=== PATIENT | female | born 1975 | race Caucasian/White ===

== ENCOUNTER 2017-02-06 13:11 | Emergency (ER) | payer OTHER ==
[2017-02-06 13:40] VITALS: BP 103/69
--- NOTE | 2017-02-06 14:51 | UC ---
Abdominal Pain Female HPI - HPI Summary HPI Summary: pt c/o abdominal discomfort that began 1 week ago. Pt has history of back injury and jail narcotic use. Was changed to tizanadine recently and states that constipation began with this. Pt denies nausea and vomiting, is passing flatus, is passing small hard stools, reports decreased appetite. Has taken one dose of OTC ex lax and one dose of oral mineral oil with no changes in BM pattern. Pt genny history of diverticulitis, IBS, crohns or any GI disease or dysfunction - History of Current Complaint Chief Complaint: UCAbdominalPain Stated Complaint: ABDOMINAL PAIN Time Seen by Provider: 02/06/17 14:42 Hx Obtained From: Patient Hx Last Menstrual Period: 01/30/17 ?: No Onset/Duration: Gradual Onset, Lasting Days - 7 days. Timing: Constant Severity Initially: Mild Severity Currently: Mild Location: Diffuse - generalized abdomen Radiates: No Character: Colicy, Dull Aggravating Factor(s): Food Alleviating Factor(s): Nothing Associated Signs and Symptoms: Positive: Constipation, Decreased Appetite Allergies/Adverse Reactions: Allergies Allergy/AdvReac Type Severity Reaction Status Date / Time No Known Allergies Allergy Verified 02/06/17 13:32 Home Medications: Home Medications Meloxicam [Mobic] 15 mg PO DAILY 02/06/17 [History Confirmed 02/06/17] Tapentadol HCl [Nucynta] 50 mg PO DAILY 02/06/17 [History Confirmed 02/06/17] Tizanidine HCl 2 mg PO TID 02/06/17 [History Confirmed 02/06/17] oxyCODONE TAB* [Roxycodone TAB 5 mg*] 5 mg PO Q6H PRN 02/06/17 [History Confirmed 02/06/17] PMH/Surg Hx/FS Hx/Imm Hx - Additional Past Medical History Additional PMH: pt presents with c/o of generalized abdominal pain, constipation, bloating and decreased appetite. Pt reports that she has chronic back pain and began taking oxycodone in 2007 due to pack injury. Pt had oxydcodone changed to tizanidine ~ 2 weeks. Pt reports has had change in bowel pattern since beginning to use tizanidine. Pt states that she has not had a "real BM" in one week. She reports passing flatus and does have urge to have BM and passes small hard stools daily. Previously Healthy: Yes - Surgical History Surgical History: Yes Surgery Procedure, Year, and Place: appy as a child - Family History Known Family History: Positive: Other - positive for FMH for URI - Social History Alcohol Use: None Substance Use Type: Prescribed Smoking Status (MU): Heavy Every Day Tobacco Smoker Type: Cigarettes Amount Used/How Often: 1/2 PPD x30 yrs Review of Systems Constitutional: Negative Skin: Negative Eyes: Negative ENT: Negative Respiratory: Negative Cardiovascular: Negative Gastrointestinal: Abdominal Pain, Other - constipated Genitourinary: Negative Motor: Negative Neurovascular: Negative Musculoskeletal: Negative Neurological: Negative Psychological: Negative All Other Systems Reviewed And Are Negative: Yes Physical Exam Triage Information Reviewed: Yes Appearance: Well-Appearing Vital Signs: Initial Vital Signs Temp 100.3 F 02/06/17 13:32 Pulse 62 02/06/17 13:32 Resp 18 02/06/17 13:32 BP 103/69 02/06/17 13:32 Pulse Ox 97 02/06/17 13:32 Vital Signs Reviewed: Yes Eye Exam: Normal ENT Exam: Normal Neck exam: Normal Respiratory Exam: Normal Cardiovascular Exam: Normal Abdominal Exam: Normal Abdomen Description: Positive: Nontender, No Organomegaly, Soft Bowel Sounds: Positive: Present Musculoskeletal Exam: Normal Neurological Exam: Normal Psychological Exam: Normal Skin Exam: Normal Abd Pain Female Course/Dx - Course Course Of Treatment: I discussed constipation management and the results of the UA and the need to f/u with her PCP or return to clinic. Pt verbalized understanding and agreed to plan of care. - Differential Dx/Diagnosis Differential Diagnosis: Bowel Obstruction, Constipation, Urinary Tract Infection Provider Diagnoses: constipation. hematuria Discharge - Discharge Plan Condition: Stable Disposition: HOME Prescriptions: Docusate CAP* [Colace Cap*] 100 mg PO BID #20 cap Polyethylene Glycol 3350* [Miralax*] 17 gm PO DAILY #5 packet Patient Education Materials: Constipation (ED) Referrals: Sourav Cotter MD [Primary Care Provider] - 1 Day (Please follwo up with your pCP or return to clinic as needed. If your symptoms do not improve, please seek medical attention as soon as possibl eat the closest healthcare facility. )
--- NOTE | 2017-02-06 15:15 | RAD ---
INDICATION: Abdominal pain x1 week COMPARISON: None TECHNIQUE: Supine and upright views of the abdomen were obtained. FINDINGS: The small bowel and colon appear nondistended. No free intraperitoneal air is seen. No grossly abnormal or pathologic appearing calcifications are noted. Visualized bones are within normal limits for the patient's age. IMPRESSION: Normal abdominal radiograph.
== END 2017-02-06 15:19 | disposition home or self-care (01) ==
LOC: UCCORT 13:11
DX: K59.00 Constipation, unspecified (principal); R31.9 Hematuria, unspecified; F17.210 Nicotine dependence, cigarettes, uncomplicated
CPT/HCPCS: 74020; 81003; 99212; G0463

== ENCOUNTER 2017-02-07 15:03 | Emergency (ER) | payer OTHER ==
[2017-02-07 15:13] VITALS: BP 124/67
[2017-02-07] MEDS ORDERED: NS 0.9% 1000 ML* 2,000 ML IV ONE (15:55)
[2017-02-07] MEDS ORDERED: Ondansetron INJ* 2 MG/ML VIAL IV ONE (15:55)
== END 2017-02-07 16:43 | disposition left against medical advice (07) ==
LOC: ED 15:03
DX: R10.9 Unspecified abdominal pain (principal); Z53.21 Procedure and treatment not carried out due to patient leaving prior to being seen by health care provider

== ENCOUNTER 2017-02-09 08:44 | Emergency (ER) | payer OTHER ==
[2017-02-09 09:03] VITALS: BP 122/74
--- NOTE | 2017-02-09 09:32 | UC ---
Abdominal Pain Female HPI - HPI Summary HPI Summary: PT HAS STRUGGLED WITH CONTIPATION FOR THE LAST 10 DAYS. SEEN AT [facility] 3 DAYS AGO AND GIVEN COLACE AND MIRALAX. PT ONLY TOOK FOR 1 DAY. DIDN'T THINK IT WAS WORKING AFTER TAKING FOR 1 DAY SO SHE STOPPED. USED AN ENEMA 2 DAYS AGO WITH GOOD RESULTS BUT NO BM SINCE. HAS ABDOMINAL BLOATING AND PAIN AND THREW UP CLEAR LIQUID YESTERDAY. NO FEVER. IS PASSING GAS. - History of Current Complaint Chief Complaint: UCAbdominalPain Stated Complaint: ABD PAIN Time Seen by Provider: 02/09/17 09:17 Hx Obtained From: Patient Hx Last Menstrual Period: 3 days ago ended Onset/Duration: Gradual Onset, Lasting Days, Still Present Timing: Constant Severity Initially: Moderate Severity Currently: Moderate Pain Intensity: 8 Pain Scale Used: 0-10 Numeric Location: Diffuse Radiates: No Character: Sharp Aggravating Factor(s): Nothing Alleviating Factor(s): Nothing Associated Signs and Symptoms: Positive: Constipation, Nausea, Vomiting Allergies/Adverse Reactions: Allergies Allergy/AdvReac Type Severity Reaction Status Date / Time No Known Allergies Allergy Verified 02/06/17 13:32 PMH/Surg Hx/FS Hx/Imm Hx - Additional Past Medical History Additional PMH: CHRONIC BACK PAIN - Surgical History Surgical History: Yes Surgery Procedure, Year, and Place: appy as a child - Family History Known Family History: Positive: Other - positive for FMH for URI - Social History Alcohol Use: None Substance Use Type: Prescribed Smoking Status (MU): Heavy Every Day Tobacco Smoker Type: Cigarettes Amount Used/How Often: 1/2 PPD x30 yrs Review of Systems Constitutional: Negative Respiratory: Negative Cardiovascular: Negative Gastrointestinal: Abdominal Pain, Vomiting, Other - NAUSEA All Other Systems Reviewed And Are Negative: Yes Physical Exam Triage Information Reviewed: Yes Appearance: Well-Appearing, No Pain Distress, Well-Nourished Vital Signs: Initial Vital Signs Temp 99.2 F 02/09/17 08:57 Pulse 62 02/09/17 08:57 Resp 18 02/09/17 08:57 BP 122/74 02/09/17 08:57 Pulse Ox 99 02/09/17 08:57 Vital Signs Reviewed: Yes Eyes: Positive: Conjunctiva Clear ENT: Positive: Hearing grossly normal Neck: Positive: Supple Respiratory Exam: Normal Cardiovascular Exam: Normal Abdomen Description: Positive: Soft, Distended - MILDLY, Other: - DIFFUSELY TENDER. Negative: Guarding Bowel Sounds: Positive: Present Musculoskeletal: Positive: No Edema Neurological: Positive: Alert Psychological: Positive: Age Appropriate Behavior Skin: Negative: rashes Abd Pain Female Course/Dx - Differential Dx/Diagnosis Provider Diagnoses: ACUTE CONSTIPATION Discharge - Discharge Plan Condition: Stable Disposition: HOME Patient Education Materials: Constipation (ED) Referrals: Sourav Cotter MD [Primary Care Provider] - If Needed Additional Instructions: TAKE THE COLACE PRESCRIBED. TAKE MIRALAX 2-3 TIMES DAILY FOR THE NEXT SEVERAL DAYS UNTIL YOU HAVE A BM THEN REDUCE TO ONCE DAILY FOR MAINTENANCE. FOLLOW-UP WITH YOUR PCP. BE SURE TO STAY WELL HYDRATED. DRINK AT LEAST 2 L OF WATER DAILY. EAT A WELL BALANCED DIET. GO TO THE ER WITHOUT FAIL IF YOU STOP PASSING GAS OR THE PAIN WORSENS.
== END 2017-02-09 10:16 | disposition home or self-care (01) ==
LOC: UCEAST 08:44
DX: K59.00 Constipation, unspecified (principal); R11.2 Nausea with vomiting, unspecified; G89.29 Other chronic pain; M54.9 Dorsalgia, unspecified; F17.210 Nicotine dependence, cigarettes, uncomplicated
CPT/HCPCS: 99211; G0463

== ENCOUNTER 2017-02-11 20:53 | Emergency (ER) | payer OTHER ==
[2017-02-11 21:07] VITALS: BP 120/77
[2017-02-11] MEDS ORDERED: Ondansetron ODT TAB* 4 MG PO ONE ×2 (22:15→22:24)
--- NOTE | 2017-02-13 16:40 | UC ---
Butch Murillo Michael, scribed for Rivka Billingsley MD on 02/11/17 at 2140 . Abdominal Pain Female HPI - HPI Summary HPI Summary: 41 y/o female comes to the ED presenting with constant and sharp right sided abd pain, progressively worse x 13 days, Much worse today. Has been seen x 2 visitis in [facility] ([place] and [place]). Last BM 13 days ago. Denies melena / brbpr. No urinary sx. Has tried several laxatives, enemas, but w/o relief. No rash. No sob / cp / palpitations. No p/d/w. She also c/o increased stress since the onset of the constipation and n/v. The pt's previous urine analysis showed protein, blood, ketones, and bilirubin in the urine. She visited [facility] on 02/09/17 for the same symptoms. She was dx with acute constipation. - History of Current Complaint Chief Complaint: UCAbdominalPain Stated Complaint: ABDOMINAL PAIN Hx Obtained From: Patient, Medical Records Hx Last Menstrual Period: 1 WEEK AGO Onset/Duration: Sudden Onset, Lasting Hours, Still Present Timing: Constant Severity Initially: Moderate Severity Currently: Moderate Pain Intensity: 10 Pain Scale Used: 0-10 Numeric Location: Discrete At: RUQ, Discrete At: RLQ Radiates: No Character: Sharp Aggravating Factor(s): Nothing Alleviating Factor(s): Nothing Associated Signs and Symptoms: Positive: Constipation, Nausea, Vomiting, Other: - stress. Allergies/Adverse Reactions: Allergies Allergy/AdvReac Type Severity Reaction Status Date / Time No Known Allergies Allergy Verified 02/11/17 21:07 PMH/Surg Hx/FS Hx/Imm Hx - Additional Past Medical History Additional PMH: chronic back pain Previously Healthy: No - see hpi - Surgical History Surgical History: Yes Surgery Procedure, Year, and Place: appy as a child - Family History Known Family History: Positive: Other - positive for FMH for URI - Social History Occupation: Unemployed Lives: With Family Alcohol Use: None Substance Use Type: None Smoking Status (MU): Current Every Day Smoker Type: Cigarettes Amount Used/How Often: 1/2 PPD Review of Systems Constitutional: Fatigue Skin: Negative Eyes: Negative, Diplopia Respiratory: Negative Cardiovascular: Negative Gastrointestinal: Abdominal Pain, Vomiting, Other - nausea. constipation Genitourinary: Negative, Other - see hpi Motor: Negative Neurovascular: Negative Musculoskeletal: Negative Neurological: Negative Psychological: Anxious - understandably anxious All Other Systems Reviewed And Are Negative: Yes Physical Exam Triage Information Reviewed: Yes Appearance: Well-Nourished, Other: - pale. non-diaphoretic. uncomfortable. laying on stretcher and holding her tummy. Vital Signs: Initial Vital Signs Temp 98.7 F 02/11/17 21:04 Pulse 66 02/11/17 21:04 Resp 16 02/11/17 21:04 BP 120/77 02/11/17 21:04 Pulse Ox 98 02/11/17 21:04 Vital Signs Reviewed: Yes Eye Exam: Normal ENT Exam: Normal ENT: Positive: Other: - oral mucosa dry. Neck exam: Normal - no adenopathy noted Respiratory Exam: Normal Respiratory: Positive: Chest non-tender, Lungs clear, Normal breath sounds, No respiratory distress, Other: - no dyspnea. no tachypnea. nml respiratory distress. Cardiovascular Exam: Normal Cardiovascular: Positive: RRR, No Murmur, Pulses Normal, Brisk Capillary Refill Abdomen Description: Positive: Soft, Other: - Mild distended no fluid wave. Non tympanic. Tender RUQ greater than LUQ. Tender RLQ. No cvat. Rectal digital exam w/o fissures or sores. No stool appreciated in vault.. Negative: CVA Tenderness (R), CVA Tenderness (L) Bowel Sounds: Positive: Hyperactive Musculoskeletal Exam: Normal Musculoskeletal: Positive: Strength Intact Neurological Exam: Normal - nonfocal. grossly intact. Psychological Exam: Normal - conversing easily Psychological: Positive: Age Appropriate Behavior Skin Exam: Normal - no rashes visualized or reported Abd Pain Female Course/Dx - Course Course Of Treatment: Rectal Exam: no sores or fissures. no stool was appreciated. Patient will be transferred to the [facility] ED-discussed with Dr. Billingsley at 1023. Patient offered and encouraged EMS. Patient and sign other politely but firmly decline EMS. They left prior to AMA for EMS was signed ( although it was reviewed with them). Advised not to eat or drink on the way to the ED. - Differential Dx/Diagnosis Provider Diagnoses: Acute abdominal pain. Obstipation Discharge - Discharge Plan Condition: Guarded Disposition: AGAINST MEDICAL ADVICE Patient Education Materials: Acute Abdominal Pain (ED) Referrals: Sourav Cotter MD [Primary Care Provider] - Additional Instructions: Please go to the Emergency Department as soon as possible. The documentation as recorded by the kashmiribButch robison Michael accurately reflects the service I personally performed and the decisions made by me, Rivka Billingsley MD.
== END 2017-02-11 22:40 | disposition left against medical advice (07) ==
LOC: UCEAST 20:53
DX: K59.00 Constipation, unspecified (principal); F17.210 Nicotine dependence, cigarettes, uncomplicated
CPT/HCPCS: 99212; G0463

== ENCOUNTER 2017-02-11 22:55 | Emergency (ER) | payer OTHER ==
[2017-02-11] MEDS ORDERED: Ondansetron INJ* 2 MG/ML VIAL IV ONE (23:55)
[2017-02-11] MEDS ORDERED: Morphine INJ* 4 MG/ML 1 ML SYRINGE IV ONE (23:55)
[2017-02-12] MEDS ORDERED: NS 0.9% 1000 ML* 1,000 ML IV ONE (00:02)
[2017-02-12 00:07] LABS: Comments Flag Yes; Hematocrit 46 % (35-47); Hemoglobin 15.1 g/dl (12.0-16.0); Mean Corpuscular HGB Conc 33 g/dl (31-36); Mean Corpuscular Hemoglobin 29 pg (27-31); Mean Corpuscular Volume 89 fL (80-97); Mean Platelet Volume 12 um3 (7.4-10.4); Red Cell Distribution Width 14 % (10.5-15); White Blood Count 18.5 10^3/ul (3.5-10.8)
[2017-02-12 00:08] LABS: Add Diff/Slide Review? Slide Review Added
[2017-02-12 00:21] LABS: Albumin 4.1 g/dL (3.2-5.2); BUN/Creatinine Ratio 18.4 (8-20); C Reactive Protein 17.6 mg/L (< 5.00); Calcium 9.2 mg/dL (8.6-10.3); EGFR African American 106.8 (>60); EGFR Non-African American 83.1 (>60); Globulin 3.3 g/dL (2-4); Potassium 3.7 mmol/L (3.5-5.0); Total Bilirubin 0.5 mg/dL (0.2-1.0); Total Protein 7.4 g/dL (6.4-8.9)
[2017-02-12] MEDS ORDERED: Iohexol 300* (CONTRAST) 10 ML SDV IV ONE (00:51)
[2017-02-12] MEDS ORDERED: Morphine INJ* 2 MG/ML 1 ML SYRINGE ONE (02:22)
[2017-02-12] MEDS ORDERED: Morphine INJ* 4 MG/ML 1 ML SYRINGE IV ONE (02:25)
[2017-02-12 02:42] LABS: Urine Bilirubin Negative (Negative); Urine Glucose Negative (Negative); Urine Nitrite Negative (Negative)
[2017-02-12 04:05] VITALS: BP 103/65
--- NOTE | 2017-02-12 08:03 | RAD ---
INDICATION: Vomiting, no bowel movement, abdominal pain. COMPARISON: Comparison is made with a prior abdominal series from February 06, 2017. TECHNIQUE: A CT scan of the abdomen and pelvis was performed with intravenous and oral contrast following intravenous injection of 81 ml of Omnipaque 300 nonionic contrast. Contiguous axial sections were obtained from the lung bases through the symphysis pubis. Images were reconstructed in the coronal and sagittal planes. FINDINGS: There is mild dependent bilateral lower lobe subsegmental atelectasis. No pleural effusion is present. The liver and spleen are normal in size without significant focal abnormality. No calcified gallstones are seen. There is mild pancreatic ductal distention. No focal pancreatic abnormality is seen. The kidneys and adrenal glands are normal in size. No hydronephrosis is seen. No significant focal renal abnormality is seen. The aorta is normal in caliber with mild calcific plaque present. No significant enlarged retroperitoneal lymph nodes are seen. The stomach, small and large bowel appear nondistended. There is thickening of the wall of the antrum of the stomach and stranding in the adjacent mesenteric fat nonspecific although suggestive of an inflammatory process. The appendix is not visualized although no inflammatory changes are seen in the right lower quadrant. There is mild descending and sigmoid diverticulosis without evidence for diverticulitis. The uterus is anteverted and normal in size. No free intraperitoneal air or fluid is seen. There are prominent vessels adjacent to the uterus in the left adnexa suggesting the possibility of pelvic congestion syndrome. No significant focal osseous abnormality is seen. The results of this exam were called to the referring clinician. IMPRESSION: THERE IS THICKENING OF THE WALL OF THE STOMACH WITH STRANDING IN THE MESENTERIC FAT SUGGESTIVE OF AN INFLAMMATORY PROCESS SUCH GASTRITIS ALTHOUGH NONSPECIFIC. RECOMMEND ENDOSCOPY FOR FURTHER EVALUATION.
--- NOTE | 2017-02-16 22:47 | ED ---
Sourav Murillo Erika, scribed for Iker Billingsley MD on 02/12/17 at 0109 . Abdominal Pain/Female - HPI Summary HPI Summary: Patient is a 41-year-old female presenting to the ED with a CC of abdominal pain. Patient reports that pain has been going on for 13 days, and pt has not had a BM in 13 days. She reports pain is periumbilical and she currently rates pain a 9/10. Patient reports she has not improved with colace or miralax. She notes a fever of 101 a few days ago. Yesterday, patient started vomiting, and cannot tolerate PO intake. Patient denies urinary symptoms. She notes chronic back pain, for which she has been taking 5 mg oxycodone every 4-6 hours for 7 years. PSHx appendectomy. LNMP last week. - History of Current Complaint Chief Complaint: EDAbdPain Stated Complaint: ABD PAIN Time Seen by Provider: 02/11/17 23:45 Hx Obtained From: Patient Hx Last Menstrual Period: 1 WEEK AGO Onset/Duration: Gradual Onset, Lasting Weeks - 13 days, Still Present Timing: Constant Severity Initially: Mild Severity Currently: Moderate Pain Intensity: 9 Pain Scale Used: 0-10 Numeric Location: Umbilical Aggravating Factor(s): Food Alleviating Factor(s): Nothing Associated Signs and Symptoms: Positive: Fever, Constipation, Nausea, Vomiting. Negative: Urinary Symptoms Allergies/Adverse Reactions: Allergies Allergy/AdvReac Type Severity Reaction Status Date / Time No Known Allergies Allergy Verified 02/11/17 21:07 PMH/Surg Hx/FS Hx/Imm Hx Musculoskeletal History: Reports: Hx Back Problems - Surgical History Surgery Procedure, Year, and Place: appy as a child Infectious Disease History: No Infectious Disease History: Denies: Traveled Outside the [place] in Last 30 Days - Family History Known Family History: Positive: Diabetes - Social History Alcohol Use: None Hx Substance Use: No Substance Use Type: Reports: None Hx Tobacco Use: Yes Smoking Status (MU): Current Every Day Smoker Type: Cigarettes Amount Used/How Often: 1/2 PPD Review of Systems Positive: Fever. Negative: Chills Negative: Erythema Negative: Sore Throat Negative: Chest Pain Negative: Shortness Of Breath, Cough Gastrointestinal: Other - constipation Positive: Abdominal Pain, Vomiting, Nausea Negative: dysuria, hematuria Positive: Myalgia - chronic back pain. Negative: Edema Neurological: Other - No dizziness All Other Systems Reviewed And Are Negative: Yes Physical Exam - Summary Physical Exam Summary: Constitutional: Well-developed, Well-nourished, Alert. (-) Distressed Skin: Warm, Dry HENT: Normocephalic; Atraumatic Eyes: Conjunctiva normal Neck: Musculoskeletal ROM normal neck. (-) JVD, (-) Stridor, (-) Tracheal deviation Cardio: Rhythm regular, rate normal, Heart sounds normal; Intact distal pulses; The pedal pulses are 2+ and symmetric. Radial pulses are 2+ and symmetric. (-) Murmur Pulmonary/Chest wall: Effort normal. (-) Respiratory distress, (-) Wheezes, (-) Rales Abd: Soft, RLQ and periumbilical tenderness to palpation, (-) Distension, (-) Guarding, (-) Rebound Musculoskeletal: (-) Edema Lymph: (-) Cervical adenopathy Neuro: Alert, Oriented x3 Psych: Mood and affect Normal Triage Information Reviewed: Yes Vital Signs On Initial Exam: Initial Vitals Temp Pulse Resp BP Pulse Ox 98.4 F 73 16 114/72 98 02/11/17 23:08 02/11/17 23:08 02/11/17 23:08 02/11/17 23:08 02/11/17 23:08 Vital Signs Reviewed: Yes Diagnostics - Vital Signs Vital Signs Temp Pulse Resp BP Pulse Ox 02/11/17 23:08 98.4 F 73 16 114/72 98 - Laboratory Result Diagrams: 02/11/17 23:55 02/11/17 23:55 Lab Statement: Any lab studies that have been ordered have been reviewed, and results considered in the medical decision making process. - CT CT A/P W/ CT Interpretation Completed By: Radiologist - IMAGING OCCUPATIONAL THERAPY ASSIST - Suspected diarrheal illness. Possible pelvic congestion syndrome. Re-Evaluation - Re-Evaluation First Eval Re-Evaluation Time: 03:12 Comment: Discussed CT results with patient. Pt was able to tolerate a whole cup of contrast Second Eval Re-Evaluation Time: 03:57 Comment: PO challenge completed Abdominal Pain Fem Course/Dx - Course Course Of Treatment: Patient has no appendix. Urine was clean. She has been vomiting which could represent a viral illness, and her brother apparently has a viral illness. - Diagnoses Provider Diagnoses: Vomiting, Viral illness Discharge - Discharge Plan Condition: Stable Disposition: HOME Patient Education Materials: Acute Nausea and Vomiting (ED), Viral Syndrome (ED ) Referrals: Sourav Cotter MD [Primary Care Provider] - 2 Days The documentation as recorded by the Sourav campos Erika accurately reflects the service I personally performed and the decisions made by , Iker Billingsley MD.
== END 2017-02-12 04:08 | disposition home or self-care (01) ==
LOC: ED 22:55
DX: B34.9 Viral infection, unspecified (principal); R10.9 Unspecified abdominal pain; R50.9 Fever, unspecified; R11.2 Nausea with vomiting, unspecified; M54.9 Dorsalgia, unspecified
CPT/HCPCS: 36415; 74177; 80053; 81003; 83605; 83690; 85025; 86140; 96374; 96375; 99284; J2270; J2405; Q9967

== ENCOUNTER 2017-02-18 11:00 | Observation (INO) | payer OTHER ==
[2017-02-18] MEDS ORDERED: Ketorolac INJ* 30 MG/ML 1 ML VIAL IV PUSH ONE (11:27)
[2017-02-18] MEDS ORDERED: Pantoprazole IV* 40 MG IV ONE (11:27)
[2017-02-18] MEDS ORDERED: NS 0.9% 1000 ML* 1,000 ML IV ONE (11:27)
[2017-02-18 12:27] LABS: Hematocrit 44 % (35-47); Hemoglobin 14.4 g/dl (12.0-16.0); Mean Corpuscular HGB Conc 33 g/dl (31-36); Mean Corpuscular Hemoglobin 29 pg (27-31); Mean Corpuscular Volume 89 fL (80-97); Mean Platelet Volume 11 um3 (7.4-10.4); Red Blood Count 4.98 10^6/ul (4.0-5.4); Red Cell Distribution Width 14 % (10.5-15); White Blood Count 15.9 10^3/ul (3.5-10.8)
[2017-02-18 12:29] LABS: Urine Bilirubin Negative (Negative); Urine Glucose Negative (Negative); Urine Nitrite Negative (Negative)
[2017-02-18 12:48] LABS: Albumin 4.2 g/dL (3.2-5.2); BUN/Creatinine Ratio 18.1 (8-20); C Reactive Protein 13.78 mg/L (< 5.00); Calcium 9.9 mg/dL (8.6-10.3); EGFR African American 96.5 (>60); Globulin 3.4 g/dL (2-4); Total Bilirubin 0.3 mg/dL (0.2-1.0); Total Protein 7.6 g/dL (6.4-8.9)
[2017-02-18 12:50] LABS: Troponin I 0.13 ng/mL (<0.04)
--- NOTE | 2017-02-18 12:53 | RAD ---
INDICATION: Abdominal pain COMPARISON: February 06, 2017 TECHNIQUE: Erect and supine views of the abdomen are submitted. FINDINGS: Bones: There are no acute bony findings. Soft tissues: The soft tissues appear normal. The psoas margins are sharp. Bowel gas pattern: Normal Calcifications: There are no abnormal calcifications. Other: None IMPRESSION: NO ACUTE DIAGNOSTIC FINDINGS
[2017-02-18] MEDS ORDERED: Aspirin EC TAB* 325 MG PO ONE (13:00)
[2017-02-18] MEDS ORDERED: Nitroglycerin TAB 0.4 MG* 0.4 MG TAB SL ONE (13:00)
--- NOTE | 2017-02-18 13:23 | RAD ---
INDICATION: Right upper quadrant pain. COMPARISON: Comparison is made with a prior CT of the abdomen and pelvis from February 12, 2017. TECHNIQUE: Multiple real-time images of the right upper quadrant were obtained. FINDINGS: The gallbladder appear normal. No gallbladder wall thickening or pericholecystic fluid is present. No intra or extrahepatic ductal distention is present. The common bile duct measured 0.5 cm in diameter. The liver is normal in size without significant focal abnormality. The pancreas is partially obscured by overlying bowel gas. The right kidney is normal in size without evidence for hydronephrosis. IMPRESSION: NEGATIVE EXAM.
[2017-02-18] MEDS ORDERED: Acetaminophen TAB* 325 MG PO PRN (13:57)
[2017-02-18] MEDS ORDERED: Ondansetron INJ* 2 MG/ML VIAL IV PRN (13:57)
[2017-02-18] MEDS ORDERED: oxyCODONE TAB* 5 MG TAB PO PRN (14:00)
[2017-02-18] MEDS ORDERED: Pantoprazole IV* 40 MG IV SCH (14:00)
[2017-02-18] MEDS: Heparin VIAL(*) 5000 UNITS/ML VIAL (FIVE THOUSAND) SUBCUT SCH ×2 (14:13→22:22)
[2017-02-18 14:30] LABS: Urine Bacteria Absent (Absent); Urine Bilirubin Negative (Negative); Urine Glucose Negative (Negative); Urine Nitrite Negative (Negative)
--- NOTE | 2017-02-18 15:18 | ED ---
Venkatesh Murillo Alok, scribed for Sourav Salazar MD on 02/18/17 at 1205 . Abdominal Pain/Female - HPI Summary HPI Summary: 41 y/o female presents to the ED for abd pain for the last 20 days. Pt was last here one week ago for the same problem and given CT which did not find the cause of pain. Pt pain is diffuse throughout her lower abd and umbilical accompanied by bloating. Her pain registers at a 9.5 out of 10 in severity. Pt also complains of N/V after eating/drinking anything which worsens symptoms. Pt also tried ICY HOT with no pain relief. Pt also on pain medications for broken tailbone with no pain relief. Her LMP was 1.5 weeks ago. PSHx includes appendectomy while young. Pt has NKDA. - History of Current Complaint Chief Complaint: EDAbdPain Stated Complaint: ABDOMINAL PAIN Time Seen by Provider: 02/18/17 11:18 Hx Obtained From: Patient Hx Last Menstrual Period: 1 WEEK AGO ?: No Onset/Duration: Gradual Onset, Lasting Weeks, Still Present Timing: Constant Severity Initially: Moderate Severity Currently: Moderate Pain Intensity: 10 Pain Scale Used: 0-10 Numeric Location: Diffuse, Discrete At: RLQ, Discrete At: LLQ, Umbilical Radiates: No Aggravating Factor(s): Food Alleviating Factor(s): Nothing Associated Signs and Symptoms: Positive: Nausea, Vomiting Allergies/Adverse Reactions: Allergies Allergy/AdvReac Type Severity Reaction Status Date / Time No Known Allergies Allergy Verified 02/11/17 21:07 Home Medications: Home Medications Meloxicam(NF) [Mobic(NF)] 15 mg PO 1900 02/18/17 [History Confirmed 02/18/17] Tapentadol ER (NF) [Nucynta ER (NF)] 50 mg PO 1900 02/18/17 [History Confirmed 02/18/17] Tizanidine HCl 2 mg PO BID 02/18/17 [History Confirmed 02/18/17] PMH/Surg Hx/FS Hx/Imm Hx Endocrine/Hematology History: Denies: Hx Diabetes Cardiovascular History: Denies: Hx Hypertension History: Denies: Hx Renal Disease - Surgical History Surgery Procedure, Year, and Place: appy as a child - Immunization History Date of Tetanus Vaccine: unk Date of Influenza Vaccine: unk Infectious Disease History: Denies: Traveled Outside the [place] in Last 30 Days - Family History Known Family History: Positive: Other - positive for FM for URI - Social History Occupation: Unemployed Lives: With Family - significant other Alcohol Use: None Substance Use Type: Reports: None Smoking Status (MU): Current Every Day Smoker Type: Cigarettes Amount Used/How Often: 1/2 PPD Review of Systems Negative: Fever Positive: Abdominal Pain, Vomiting, Nausea All Other Systems Reviewed And Are Negative: Yes Physical Exam - Summary Physical Exam Summary: VITAL SIGNS: Reviewed. GENERAL: ~Patient is a well developed and nourished female who is lying comfortable in the stretcher. ~Patient is not in any acute respiratory distress. HEAD AND FACE: Normocephalic EYES: PERRLA, EOMI x 2. EARS: Hearing grossly intact. MOUTH: Oropharynx within normal limits. NECK: Supple, trachea is midline, no adenopathy, no JVD, no carotid bruit. CHEST: Symmetric, no tenderness at palpation LUNGS: Clear to auscultation bilaterally. No wheezing or crackles. CVS: Regular rate and rhythm, S1 and S2 present, no murmurs or gallops appreciated. ABDOMEN: Diffuse abd pain. No rebound. No Guarding. Positive bowel sounds. EXTREMITIES: Full ROM in all major joints, no edema, no cyanosis or clubbing. NEURO: Alert and oriented x 3. No acute neurological deficits. Speech is normal and follows commands. SKIN: Dry and warm Triage Information Reviewed: Yes Vital Signs On Initial Exam: Initial Vitals Temp Pulse Resp BP Pulse Ox 98.1 F 73 20 125/67 100 02/18/17 11:02 02/18/17 11:02 02/18/17 11:02 02/18/17 11:02 02/18/17 11:02 Vital Signs Reviewed: Yes Diagnostics - Vital Signs Vital Signs Temp Pulse Resp BP Pulse Ox 02/18/17 11:02 98.1 F 73 20 125/67 100 - Laboratory Lab Results: Lab Results 02/18/17 02/18/17 02/18/17 Range/Units 12:03 12:03 12:03 WBC 15.9 H (3.5-10.8) 10^3/ul RBC 4.98 (4.0-5.4) 10^6/ul Hgb 14.4 (12.0-16.0) g/dl Hct 44 (35-47) % MCV 89 (80-97) fL MCH 29 (27-31) pg MCHC 33 (31-36) g/dl RDW 14 (10.5-15) % Plt Count 202 (150-450) 10^3/ul MPV 11 H (7.4-10.4) um3 Neut % (Auto) 74.3 (38-83) % Lymph % (Auto) 15.0 L (25-47) % [place] % (Auto) 7.0 (1-9) % Eos % (Auto) 2.6 (0-6) % Baso % (Auto) 1.1 (0-2) % Absolute Neuts (auto) 11.8 H (1.5-7.7) 10^3/ul Absolute Lymphs (auto) 2.4 (1.0-4.8) 10^3/ul Absolute Monos (auto) 1.1 H (0-0.8) 10^3/ul Absolute Eos (auto) 0.4 (0-0.6) 10^3/ul Absolute Basos (auto) 0.2 (0-0.2) 10^3/ul Absolute Nucleated RBC 0 10^3/ul Nucleated RBC % 0 ESR Pending D-Dimer, Quantitative (Less Than 230) ng/mL Sodium 140 (133-145) mmol/L Potassium 4.0 (3.5-5.0) mmol/L Chloride 104 (101-111) mmol/L Carbon Dioxide 29 (22-32) mmol/L Anion Gap 7 (2-11) mmol/L BUN 15 (6-24) mg/dL Creatinine 0.83 (0.51-0.95) mg/dL Est GFR ( Amer) 96.5 (>60) Est GFR (Non-Af Amer) 75.0 (>60) BUN/Creatinine Ratio 18.1 (8-20) Glucose 112 H (70-100) mg/dL Lactic Acid (0.5-2.0) mmol/L Calcium 9.9 (8.6-10.3) mg/dL Total Bilirubin 0.30 (0.2-1.0) mg/dL AST 11 L (13-39) U/L ALT 9 (7-52) U/L Alkaline Phosphatase 57 (34-104) U/L Total Creatine Kinase 117 (10-223) U/L Troponin I 0.13 H* (<0.04) ng/mL C-Reactive Protein 13.78 H (< 5.00) mg/L Total Protein 7.6 (6.4-8.9) g/dL Albumin 4.2 (3.2-5.2) g/dL Globulin 3.4 (2-4) g/dL Albumin/Globulin Ratio 1.2 (1-3) Amylase 62 (29-103) U/L Lipase 40 (11.0-82.0) U/L Beta HCG, Quant 6.42 mIU/mL Urine Color Yellow Urine Appearance Cloudy Urine pH 7.0 (5-9) Ur Specific [place] 1.013 (1.010-1.030) Urine Protein Negative (Negative) Urine Ketones Negative (Negative) Urine Blood Negative (Negative) Urine Nitrate Negative (Negative) Urine Bilirubin Negative (Negative) Urine Urobilinogen Negative (Negative) Ur Leukocyte Esterase Negative (Negative) Urine Glucose Negative (Negative) 02/18/17 02/18/17 Range/Units 12:03 12:03 WBC (3.5-10.8) 10^3/ul RBC (4.0-5.4) 10^6/ul Hgb (12.0-16.0) g/dl Hct (35-47) % MCV (80-97) fL MCH (27-31) pg MCHC (31-36) g/dl RDW (10.5-15) % Plt Count (150-450) 10^3/ul MPV (7.4-10.4) um3 Neut % (Auto) (38-83) % Lymph % (Auto) (25-47) % [place] % (Auto) (1-9) % Eos % (Auto) (0-6) % Baso % (Auto) (0-2) % Absolute Neuts (auto) (1.5-7.7) 10^3/ul Absolute Lymphs (auto) (1.0-4.8) 10^3/ul Absolute Monos (auto) (0-0.8) 10^3/ul Absolute Eos (auto) (0-0.6) 10^3/ul Absolute Basos (auto) (0-0.2) 10^3/ul Absolute Nucleated RBC 10^3/ul Nucleated RBC % ESR D-Dimer, Quantitative 281 H (Less Than 230) ng/mL Sodium (133-145) mmol/L Potassium (3.5-5.0) mmol/L Chloride (101-111) mmol/L Carbon Dioxide (22-32) mmol/L Anion Gap (2-11) mmol/L BUN (6-24) mg/dL Creatinine (0.51-0.95) mg/dL Est GFR ( Amer) (>60) Est GFR (Non-Af Amer) (>60) BUN/Creatinine Ratio (8-20) Glucose (70-100) mg/dL Lactic Acid 1.1 (0.5-2.0) mmol/L Calcium (8.6-10.3) mg/dL Total Bilirubin (0.2-1.0) mg/dL AST (13-39) U/L ALT (7-52) U/L Alkaline Phosphatase (34-104) U/L Total Creatine Kinase (10-223) U/L Troponin I (<0.04) ng/mL C-Reactive Protein (< 5.00) mg/L Total Protein (6.4-8.9) g/dL Albumin (3.2-5.2) g/dL Globulin (2-4) g/dL Albumin/Globulin Ratio (1-3) Amylase (29-103) U/L Lipase (11.0-82.0) U/L Beta HCG, Quant mIU/mL Urine Color Urine Appearance Urine pH (5-9) Ur Specific [place] (1.010-1.030) Urine Protein (Negative) Urine Ketones (Negative) Urine Blood (Negative) Urine Nitrate (Negative) Urine Bilirubin (Negative) Urine Urobilinogen (Negative) Ur Leukocyte Esterase (Negative) Urine Glucose (Negative) Result Diagrams: 02/18/17 12:03 02/18/17 12:03 Lab Statement: Any lab studies that have been ordered have been reviewed, and results considered in the medical decision making process. - Radiology Abd XRAY Xray Interpretation: Positive (See Comments) - IMPRESSION: NO ACUTE DIAGNOSTIC PROBLEMS Radiology Interpretation Completed By: Radiologist - EKG 1316 Cardiac Rate: NL EKG Rhythm: Sinus Rhythm - 62 bpm EKG Interpretation: No ST elevations - Additional Comments Diagnostic Additional Comments: Gallbladder US - IMPRESSION: NEGATIVE EXAM Re-Evaluation - Re-Evaluation First Eval Re-Evaluation Time: 13:05 Abdominal Pain Fem Course/Dx - Course Course Of Treatment: 41 y/o female presents to the ED for abd pain for the last 20 days. Pt was last here one week ago for the same problem and given CT which did not find the cause of pain. Pt pain is diffuse throughout her lower abd and umbilical accompanied by bloating. Her pain registers at a 9.5 out of 10 in severity. Pt also complains of N/V after eating/drinking anything which worsens symptoms. Pt also tried ICY HOT with no pain relief. Pt also on pain medications for broken tailbone with no pain relief. Her LMP was 1.5 weeks ago. PSHx includes appendectomy while young. Pt has NKDA. Blood work shows an increase WBCs 15.9, glucose 112, troponin 0.13, CRP 13.7, UA negative and EKG shows NSR w/o STEMI. Initially she was given IVF, Zofran, protonix and Toradol for the pain. Since Troponin was elevated she which it may be the cause of the pain she was given ASA and Nitroglycerin. RUQ US Impression: Negative exam. Abdominal X-ray IMPRESSION: NO ACUTE DIAGNOSTIC FINDINGS. At this point I discussed the case with Dr. Stoll who accepted the patient for further work up and management. She is hemodynamically stable A+O x 3. - Diagnoses Differential Diagnosis: Positive: ACS, Bowel Obstruction, Constipation, Gall Bladder Disease, Hepatitis, UT, Urinary Tract Infection Provider Diagnoses: Increased troponin r/o ACS, Epigastric pain - Provider Notifications Discussed Care Of Patient With: Dr. Stoll (Hospitalist) @ [id number] Discharge - Discharge Plan Condition: Stable Disposition: ADMITTED TO [facility] documentation as recorded by the Venkatesh campos Alok accurately reflects the service I personally performed and the decisions made by me, Sourav Salazra MD.
[2017-02-18 16:10] LABS: Erythrocyte Sed Rate 42 mm/Hr (0-14)
[2017-02-18] MEDS: Sucralfate TAB* 1 GM PO SCH (17:55)
--- NOTE | 2017-02-18 17:55 | HP ---
HISTORY AND PHYSICAL: DATE OF ADMISSION: 02/18/17 PRIMARY CARE PROVIDER: Dr. Cotter. ATTENDING PHYSICIAN WHILE IN THE HOSPITAL: Dr. Abby Drummond * (report dictated by Kvng Josue NP) CHIEF COMPLAINT: Abdominal pain. HISTORY OF PRESENT ILLNESS: Ms. Worthington is 41-year-old female patient. She has a history of chronic back pain only and a history of tobacco abuse. She comes in to the ER today stating that she has been having significant amount of abdominal pain over the last 20 days off and on more severe at times than others, worsening when she eats or drinks anything and worsening when she is vomiting. She says that most recently the pain is mostly in the epigastric area. She specifically denied having any chest pain or shortness of breath. She said the pain comes and goes. She said last night the episode was worse when she was lying down after eating dinner. She said she did not have any chest pain. She has not had any chest pain recently and she denied having any chest pain with exertion. She says she has not had any recent cough or fever. No recent URI-type symptoms. She said she has not been feeling short of breath. Her biggest complaint was that she just been having worsening abdominal discomfort, which has just been unrelenting for the last 20 days and she describes it as diffuse at times and has a burning, sharp, stabbing pain like someone is ripping her inside out. She was concerned because her symptoms were not getting any better. She came in today. Ultimately, the ED found that her troponin was mildly elevated, so the hospitalist service was asked to evaluate in admission. PAST MEDICAL HISTORY: Significant for chronic back pain. PAST SURGICAL HISTORY: She has had an appendectomy. MEDICATIONS: Home meds include: 1. Oxycodone 5 to 10 mg every 6 to 8 hours as needed. 2. Tizanidine 2 mg p.o. b.i.d. 3. Nucynta 50 mg daily. 4. Mobic 15 mg daily. ALLERGIES TO MEDICATIONS: Include no known drug allergies. FAMILY HISTORY: Mother was diabetic. Father had a history of heart disease. SOCIAL HISTORY: She smokes about a half pack a day for the last 28 years. She does not drink alcohol. Surrogate decision maker is her Rocco solorzano. REVIEW OF SYSTEMS: There is no documented fever. She denied having any significant weight change. There was no double vision. She denies having any ear discharge. There is no rhinorrhea. No sore throat. No thyroid enlargement. She denied having any chest pain. There is no orthopnea, no nocturnal dyspnea. There is abdominal pain from my HPI. There was one episode of nausea and vomiting. No dysuria, no frequency. No seizure, no loss of consciousness. No pruritus and no skin ulcerations. Review of 14 systems completed, all others negative. PHYSICAL EXAMINATION GENERAL: At this time, Ms. Worthington is a 41-year-old female patient. She appears to be well-nourished, well-developed, and does not appear to be in any acute distress. VITAL SIGNS: Reveal blood pressure 136/74, pulse of 84, respirations 18, O2 sat 95%, and temperature 98.7. HEENT: Head is atraumatic and normocephalic. Eyes: EOMs are intact. Sclerae anicteric. Throat: Oral mucosa appears to be moist. No oropharyngeal erythema. NECK: Supple. LUNGS: Clear to auscultation bilaterally. No wheezes, rales, or rhonchi. HEART: Sounds S1, S2. Regular rate and rhythm. No murmurs, rubs, or gallops. ABDOMEN: Soft, flat. There was tenderness in the epigastric area. Bowel sounds are present. EXTREMITIES: She had 5/5 strength. No peripheral edema. Pulses 2+ throughout. She is able to move all 4 extremities with 5/5 strength. NEUROLOGIC: She is awake, alert, and oriented x3. Tongue midline. Reticle Printer were equal. No gross focal deficits. SKIN: Intact. DIAGNOSTIC STUDIES/LAB DATA: Today revealed WBC of 15.9, RBC of 4.98, hemoglobin 14.4, hematocrit of 44, platelet count 202. The sodium is 140, potassium 4.0, chloride 104, CO2 29, BUN 15, creatinine 0.83, glucose of 112, lactate 1.1, calcium was 9.9. AST 11, ALT 9, alk phos 59. CK 117. Her troponin was 0.13. I do not have previous for comparison. Albumin of 4.2. Lipase 40, amylase . Her beta HCG was 6.42. Urine was obtained; it was negative. She had a gallbladder ultrasound obtained which showed a negative exam. She had abdominal x-ray, which revealed no acute diagnostic findings. She had an EKG obtained today, showed a normal sinus rhythm, rate of 62. No ST elevations or T-wave inversions were noted. There was a CT of the abdomen and pelvis just done about a week or so ago showed there is thickening of the wall of the stomach with stranding in the mesenteric fat suggestive of inflammatory process such as gastritis, although nonspecific, recommend endoscopy for further evaluation. Old medical records were reviewed. ASSESSMENT AND PLAN: Ms. Worthington is a 41-year-old female patient coming into the ER today with complaints of epigastric discomfort and abdominal pain. On evaluation found to have an elevated troponin. We were asked to evaluate for admission. She will be admitted under observation status for: 1. Gastritis and abdominal pain. Again, I suspect she probably has gastritis. She takes Mobic on a daily basis for chronic back pain. My plan at this point is to put her on Carafate PPI therapy and see if this helps with the pain. I will put her on Colace and senna as well, as she says she has been having difficulty with having a bowel movement. Her last bowel movement was a day ago , but she has been needing to use an enema, so I will put her on a stool regimen. I would also recommend in an outpatient setting that she get an EGD. 2. Elevated troponin. Etiology is unclear. She is not having any chest discomfort. I think we will need to trend these. If they go up, we will get a Cardiology consult. I do not think she needs to be on heparin drip at this point, but I will go ahead and put her on aspirin minimally and we will continue to monitor. If they go up, I would add on a beta [place] and a heparin drip. I am wary of the heparin drip, because of this question of gastritis. I would not want to have her bleed. 3. Indeterminate HCG. She is adamant that she is not . We will just repeat this and follow. 4. Chronic pain. Continue meds as prescribed. 5. DVT prophylaxis. I will put her on subcu heparin. 6. Code status. Full code. 7. Fluids, electrolytes, and nutrition: She can have a heart-healthy diet. TIME SPENT: On the admission was 60 minutes; greater than half the time was spent [id number] with the patient obtaining my history and physical, the other half time was spent going over the plan of care with the patient and implementing the plan of care. I did discuss the plan of care with my attending, Dr. Drummond; she is in agreement. KVNG JOSUE NP CC: Dr. Cotter * [id number]/[facility] #: [id number] [place]
[2017-02-18] MEDS ORDERED: TAPENTADOL 50 MG PO SCH (19:00)
[2017-02-18] MEDS: oxyCODONE TAB* 5 MG TAB PO PRN (20:25)
[2017-02-18] MEDS ORDERED: Docusate CAP* 100 MG PO SCH (21:00)
[2017-02-18] MEDS ORDERED: tiZANidine TAB* 2 MG PO SCH (21:00)
[2017-02-18] MEDS ORDERED: Senna TAB PO SCH (21:00)
[2017-02-19] MEDS: oxyCODONE TAB* 5 MG TAB PO PRN ×2 (00:20→05:05)
[2017-02-19] MEDS: Heparin VIAL(*) 5000 UNITS/ML VIAL (FIVE THOUSAND) SUBCUT SCH (05:06)
[2017-02-19 05:19] LABS: Hematocrit 36 % (35-47); Hemoglobin 11.7 g/dl (12.0-16.0); Mean Corpuscular HGB Conc 33 g/dl (31-36); Mean Corpuscular Hemoglobin 29 pg (27-31); Mean Corpuscular Volume 89 fL (80-97); Mean Platelet Volume 12 um3 (7.4-10.4); Red Cell Distribution Width 13 % (10.5-15); White Blood Count 12.8 10^3/ul (3.5-10.8)
[2017-02-19 05:23] LABS: Add Diff/Slide Review? Slide Review Added; Comments Flag Yes
[2017-02-19 05:37] LABS: Anion Gap 6 mmol/L (2-11); BUN/Creatinine Ratio 27.3 (8-20); Blood Urea Nitrogen 18 mg/dL (6-24); CO2 Carbon Dioxide 24 mmol/L (22-32); Calcium 8.3 mg/dL (8.6-10.3); Chloride 109 mmol/L (101-111); Cholesterol 109 mg/dL; EGFR African American 125.7 (>60); EGFR Non-African American 97.7 (>60); Glucose 90 mg/dL (70-100); HDL Cholesterol 20.2 mg/dL; LDL Cholesterol 70 mg/dL; Sodium 139 mmol/L (133-145); Triglycerides 96 mg/dL
[2017-02-19] MEDS: Sucralfate TAB* 1 GM PO SCH (07:07)
[2017-02-19 07:34] VITALS: BP 92/52
[2017-02-19] MEDS ORDERED: Pantoprazole IV* 40 MG IV SCH (09:00)
--- NOTE | 2017-02-20 01:18 | DS ---
DISCHARGE SUMMARY: DATE OF ADMISSION: 02/18/17 DATE OF DISCHARGE: 02/19/17 PRIMARY CARE PROVIDER: Sourav Cotter MD DISCHARGING PROVIDER: GIL Gibbs SUPERVISING PHYSICIAN: Presley Palomino MD* (DICTATED BY GIL GIBBS) PRIMARY DISCHARGE DIAGNOSES: 1. Abdominal pain - likely secondary to gastritis and chronic constipation. 2. Elevated troponin - likely a lab error. 3. Leukocytosis - likely leukemoid reaction without evidence of acute bacterial infection. SECONDARY DISCHARGE DIAGNOSIS: Chronic back pain, on opioid therapy. DISCHARGE MEDICATIONS: 1. Docusate 100 mg p.o. b.i.d. 2. Mobic 15 mg p.o. daily. 3. Protonix 40 mg p.o. daily. 4. Senna 1 tablet p.o. at bedtime. 5. Nucynta 50 mg p.o. daily. 6. Tizanidine 2 mg p.o. twice daily. 7. Oxycodone 5 to 10 mg p.o. q.6-8 hours as needed for pain. MEDICATION CHANGES: 1. Start Protonix. 2. Start Docusate. 3. Start senna. HOSPITAL IMAGIN. X-ray of the abdomen shows no acute process, a moderate amount of stool is present. 2. Ultrasound of the gallbladder shows no acute pathology. 3. EKG shows a sinus rhythm without ischemic changes and repeat EKG remains unchanged. HOSPITAL COURSE: This is a 41-year-old female with history of chronic back pain for which she is treated with opioids and NSAIDs, who presented to the emergency department with complaints of abdominal pain. The patient has had intermittent abdominal pain exacerbated by eating for the last 3 weeks. She has had associated vomiting. She also reports constipation and has not had a bowel movement in several days. Initial labs demonstrated a moderately leukocytosis with a white blood cell count of 15,900 with a relatively normal differential. Comprehensive metabolic panel was unremarkable. Initial troponin was measured at 0.13; however, and beta-hCG was indeterminate at 6.42. The patient was subsequently admitted for observation status due to her elevated troponin level. X-ray of the abdomen was completed in the emergency department, which showed no acute pathology as well as an ultrasound of the gallbladder, which appeared to be benign. Etiology of the patient's abdominal pain was suspected to be gastritis and complicated by constipation. The patient was started on a PPI as well as Carafate and laxative. Her abdominal pain improved overnight and she was able to tolerate a normal diet without pain, nausea, or vomiting. Repeat troponins were negative, reported at 0.00 on 2 separate occasions. Repeat EKG showed no ischemic changes. Telemetry monitoring overnight showed sinus rhythm with a rate in the 60s. I assumed that initial troponin level was likely a lab error. Beta-hCG was repeated in the morning of discharge and reported as negative at less than 0.60. DISPOSITION: The patient is being discharged to home with Protonix as well as laxative and stool softener as described above. She has already been referred to a security system engineer by her primary care provider and has a pending appointment for next week, which she is encouraged to keep. She may benefit from an outpatient EGD depending on how she responds to initiating PPI therapy. Otherwise, recommend followup with primary care provider GIL GIBBS CC: Sourav Cotter MD* [id number]/[facility] #: [id number] MTDScarlett
== END 2017-02-19 10:00 | disposition home or self-care (01) ==
LOC: ED 11:00 → MEDTELE 13:15
PROVIDERS: ADMIT Internal Medicine; ATTEND Hospitalist
DX: R10.13 Epigastric pain (principal); K29.70 Gastritis, unspecified, without bleeding; R74.8 Abnormal levels of other serum enzymes; D72.829 Elevated white blood cell count, unspecified; R00.1 Bradycardia, unspecified; Z79.899 Other long term (current) drug therapy; F17.210 Nicotine dependence, cigarettes, uncomplicated; Z32.02 Encounter for pregnancy test, result negative
CPT/HCPCS: 36415; 74020; 76705; 80048; 80053; 80061; 81003; 82150; 82550; 83036; 83605; 83690; 84484; 84702; 85025; 85379; 85652; 86140; 87040; 87086; 87502; 93005; 96361; 96372; 96374; 96375; 99283; 99406; A9270-GY; G0378; J1644; J1885

== ENCOUNTER 2017-05-31 14:05 | Emergency (ER) | payer OTHER ==
[2017-05-31 15:07] VITALS: BP 106/60
[2017-05-31 16:20] LABS: Hematocrit 42 % (35-47); Hemoglobin 13.9 g/dl (12.0-16.0); Mean Corpuscular HGB Conc 33 g/dl (31-36); Mean Corpuscular Hemoglobin 30 pg (27-31); Mean Corpuscular Volume 90 fL (80-97); Mean Platelet Volume 11 um3 (7.4-10.4); Red Blood Count 4.67 10^6/ul (4.0-5.4); Red Cell Distribution Width 15 % (10.5-15); White Blood Count 10.7 10^3/ul (3.5-10.8)
[2017-05-31 16:39] LABS: Albumin 3.8 g/dL (3.2-5.2); BUN/Creatinine Ratio 11.5 (8-20); Calcium 8.8 mg/dL (8.6-10.3); EGFR African American 103.7 (>60); EGFR Non-African American 80.6 (>60); Potassium 3.6 mmol/L (3.5-5.0); Total Bilirubin 0.3 mg/dL (0.2-1.0); Total Protein 6.8 g/dL (6.4-8.9)
[2017-05-31] MEDS ORDERED: oxyCODONE/Acetamin 5/325 MG* TAB PO PRN (16:41)
[2017-05-31] MEDS ORDERED: oxyCODONE TAB* 5 MG TAB PO PRN (16:43)
--- NOTE | 2017-05-31 19:03 | ED ---
Peter Murillo Auryana, scribed for Sourav Salazar MD on 05/31/17 at 1524 . HPI Cardiac - HPI Summary HPI Summary: 41 year old female presents to the ED with discolored left pinky and ring finger and severe pain s/p stent placement. 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 Patient reports that the pain has improved but it is preventing her from sleeping for the last 3 days. Touch makes the pain worse. She is on Plavix 75mg once a day and ASA. PMHx is significant for chronic back pain and appendectomy. Dr. Samuels ([phone]) at [facility] - stent placement. SHx is significant for tobacco use but denies any alcohol and recreational drug use. - History of Current Complaint Chief Complaint: EDGeneral Stated Complaint: PAIN IN LT WRIST AND ARM Time Seen by Provider: 05/31/17 15:20 Hx Obtained From: Patient Onset/Duration: Still Present Timing: Constant Initial Severity: Severe Current Severity: Severe Pain Intensity: 10 Pain Scale Used: 0-10 Numeric Aggravating Factor(s): Nothing Alleviating Factor(s): Nothing Associated Signs and Symptoms: Positive: Negative - BLUE FINGERS BUT NO OTHER SYMPTOMS Related History: Similar Episode/Dx as: - SEE HPI - Additional Pertinent History Primary Care Physician: JEANNE - Allergy/Home Medications Allergies/Adverse Reactions: Allergies Allergy/AdvReac Type Severity Reaction Status Date / Time Pineapple Allergy Unknown Verified 05/31/17 15:07 Reaction Details Home Medications: Home Medications Acetaminophen TAB* [Tylenol TAB*] 500 mg PO Q6HR PRN 05/31/17 [History Confirmed 05/31/17] Aspirin [Aspirin 81 MG TAB] 81 mg PO DAILY 05/31/17 [History Confirmed 05/31/17] Clopidogrel TAB* [Plavix TAB*] 75 mg PO DAILY 05/31/17 [History Confirmed ] Docusate CAP* [Colace Cap*] 100 mg PO BID 05/31/17 [History Confirmed 05/31/17] Pantoprazole TAB (NF) [Protonix TAB (NF)] 40 mg PO BID 05/31/17 [History Confirmed 05/31/17] Zolpidem TAB* [Ambien TAB*] 5 mg PO BEDTIME PRN 05/31/17 [History Confirmed ] PMH/Surg Hx/FS Hx/Imm Hx Endocrine/Hematology History: Denies: Hx Diabetes Cardiovascular History: Denies: Hx Hypertension History: Denies: Hx Renal Disease Sensory History: Denies: Hx Contacts or Glasses, Hx Hearing Aid Opthamlomology History: Denies: Hx Contacts or Glasses - Surgical History Surgery Procedure, Year, and Place: appy as a child - Immunization History Date of Tetanus Vaccine: unk Date of Influenza Vaccine: unk Infectious Disease History: No Infectious Disease History: Denies: Traveled Outside the [place] in Last 30 Days - Family History Known Family History: Positive: Other - positive for FMH for URI - Social History Alcohol Use: None Substance Use Type: Reports: None Smoking Status (MU): Current Every Day Smoker Type: Cigarettes Amount Used/How Often: 1/2 PPD Review of Systems Constitutional: Negative Negative: Fever Eyes: Negative ENT: Negative Cardiovascular: Negative Respiratory: Negative Gastrointestinal: Negative Genitourinary: Negative Musculoskeletal: Negative Positive: Other - BLUE FINGERS - PINKY AND RING FINGER ON THE LEFT HAND Neurological: Negative Psychological: Normal All Other Systems Reviewed And Are Negative: Yes Physical Exam - Summary Physical Exam Summary: VITAL SIGNS: Reviewed. GENERAL: Patient is a well-developed and nourished female who is lying comfortable in the stretcher. Patient is not in any acute respiratory distress. HEAD AND FACE: No signs of trauma. No ecchymosis, hematomas or skull depressions. EYES: PERRLA, EOMI x 2, No injected conjunctiva, no nystagmus. EARS: Hearing grossly intact. Ear canals and tympanic membranes are within normal limits. MOUTH: Oropharynx within normal limits. NECK: Supple, trachea is midline, no adenopathy, no JVD, no carotid bruit, no c- spine tenderness, neck with full ROM. CHEST: Symmetric, no tenderness at palpation LUNGS: Clear to auscultation bilaterally. No wheezing or crackles. CVS: Regular rate and rhythm, S1 and S2 present, no murmurs or gallops appreciated. ABDOMEN: Soft, non-tender. No signs of distention. No rebound no guarding, and no masses palpated. Bowel sounds are normal. EXTREMITIES: FROM in all major joints, no edema. Good radial and ulnar pulses. NEURO: Alert and oriented x 3. No acute neurological deficits. Speech is normal and follows commands. SKIN: Dry and warm. Distal phalanx of the 1st, 2nd, and 3rd with slight blueish discoloration. Triage Information Reviewed: Yes Vital Signs On Initial Exam: Initial Vitals Temp Pulse Resp BP Pulse Ox 98.8 F 73 20 131/83 92 05/31/17 14:19 05/31/17 14:19 05/31/17 14:19 05/31/17 14:19 05/31/17 14:19 Vital Signs Reviewed: Yes Diagnostics - Vital Signs Vital Signs Temp Pulse Resp BP Pulse Ox 05/31/17 15:00 70 21 106/60 98 05/31/17 14:40 79 98 05/31/17 14:38 128/98 05/31/17 14:34 99.1 F 70 17 128/98 98 05/31/17 14:19 98.8 F 73 20 131/83 92 - Laboratory Lab Results: Lab Results 05/31/17 05/31/17 Range/Units 14:55 14:55 WBC 10.7 (3.5-10.8) 10^3/ul RBC 4.67 (4.0-5.4) 10^6/ul Hgb 13.9 (12.0-16.0) g/dl Hct 42 (35-47) % MCV 90 (80-97) fL MCH 30 (27-31) pg MCHC 33 (31-36) g/dl RDW 15 (10.5-15) % Plt Count 198 (150-450) 10^3/ul MPV 11 H (7.4-10.4) um3 Neut % (Auto) 64.8 (38-83) % Lymph % (Auto) 22.6 L (25-47) % [place] % (Auto) 7.6 (1-9) % Eos % (Auto) 4.5 (0-6) % Baso % (Auto) 0.5 (0-2) % Absolute Neuts (auto) 6.9 (1.5-7.7) 10^3/ul Absolute Lymphs (auto) 2.4 (1.0-4.8) 10^3/ul Absolute Monos (auto) 0.8 (0-0.8) 10^3/ul Absolute Eos (auto) 0.5 (0-0.6) 10^3/ul Absolute Basos (auto) 0.1 (0-0.2) 10^3/ul Absolute Nucleated RBC 0.01 10^3/ul Nucleated RBC % 0.1 Sodium 137 (133-145) mmol/L Potassium 3.6 (3.5-5.0) mmol/L Chloride 108 (101-111) mmol/L Carbon Dioxide 24 (22-32) mmol/L Anion Gap 5 (2-11) mmol/L BUN 9 (6-24) mg/dL Creatinine 0.78 (0.51-0.95) mg/dL Est GFR ( Amer) 103.7 (>60) Est GFR (Non-Af Amer) 80.6 (>60) BUN/Creatinine Ratio 11.5 (8-20) Glucose 89 (70-100) mg/dL Calcium 8.8 (8.6-10.3) mg/dL Total Bilirubin 0.30 (0.2-1.0) mg/dL AST 9 L (13-39) U/L ALT 10 (7-52) U/L Alkaline Phosphatase 55 (34-104) U/L Total Protein 6.8 (6.4-8.9) g/dL Albumin 3.8 (3.2-5.2) g/dL Globulin 3.0 (2-4) g/dL Albumin/Globulin Ratio 1.3 (1-3) Result Diagrams: 05/31/17 14:55 05/31/17 14:55 Lab Statement: Any lab studies that have been ordered have been reviewed, and results considered in the medical decision making process. - EKG 14:41 EKG Interpretation: sinus rhythm @ 66 bpm, with incomplete RBBB Disposition - Course Assessment/Plan: 41 year old female presents to the ED with discolored left pinky and ring finger and severe pain s/p stent placement. 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 Patient reports that the pain has improved but it is preventing her from sleeping for the last 3 days. Touch makes the pain worse. She is on Plavix 75mg once a day and ASA. PMHx is significant for chronic back pain and appendectomy. Dr. Samuels ([phone]) at [facility] - stent placement. SHx is significant for tobacco use but denies any alcohol and recreational drug use. Test results w/o a significant abnormality. Patient was given 2 percocet for witt. I discussed the case with Dr. Bah (vascular surgery) and she recommends to discharge home and f/u with Dr. Samuels as shedule on June 10. She continued to be with with good radial and ulnar pulses. Using a doppler we were able to ases palmar circulation which was present. I discussed all the findings and test results with the patient. Patient was instructed to return to the emergency room immediately if any of the symptoms return or worsens. Plan of care was discussed with the patient and understands and agrees. All questions were answered at patient satisfaction. There were no further complaints or concerns. Lung exam before discharge: CTA B/L. Good air exchange. No wheezing or crackles heard. CVS: S1 and S2 present. No murmurs appreciated. Patient is alert and oriented x 3. Patient is hemodynamically stable. Patient will be discharged home with follow up Dr. Samuels as scheduled. - Differential Dx - Cardiopulmonary Differential Diagnoses - Cardiopulmonary: Other - Ischemia in LUE, VDT - Diagnoses Provider Diagnoses: Left hand pain - Physician Notifications Discussed Care Of Patient With: Mira Olson Time Discussed With Above Provider: 15:55 - recommends discharge and f/u with Dr. Samuels on schedule day 06/10/17 Discharge - Discharge Plan Condition: Stable Disposition: HOME Patient Education Materials: Arthralgia (ED) Referrals: Leoncio Fatima DO [Primary Care Provider] - Additional Instructions: PLEASE KEEP SCHEDULED APPOINTMENT WITH DR. SAMUELS FOR 06/10/17 The documentation as recorded by the Peter campos Auryana accurately reflects the service I personally performed and the decisions made by me, Sourav Salazar MD.
== END 2017-05-31 18:06 | disposition home or self-care (01) ==
LOC: ED 14:05
DX: M79.642 Pain in left hand (principal); M25.532 Pain in left wrist; Z87.891 Personal history of nicotine dependence
CPT/HCPCS: 36415; 80053; 85025; 93005; 99283; A9270-GY

== ENCOUNTER 2017-06-07 15:26 | Emergency (ER) | payer OTHER ==
--- NOTE | 2017-06-07 16:55 | ED ---
Skin Complaint - HPI Summary HPI Summary: Patient is a 41 year old female presents to the ED with discolored left pinky and ring finger and severe pain s/p stent placement. 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 She was seen last week on 05/31/[address] Salazar who gave pain management [facility] in [place] with the recommendation to send home and follow up as scheduled on 06/10/17. Patient reports that the pain had improved s/p stent placement, but now is becoming worse and is preventing her from sleeping for the last 3 days. Touch makes the pain worse. While last weeks visit she had dusky redness and purple tint, she now notes to new white areas on the distal tip of the pinky finger. She is on Plavix 75mg once a day and ASA. PMHx is significant for chronic back pain and appendectomy. Dr. Brooke ([phone]) at [facility] - stent placement. SHx is significant for tobacco use but denies any alcohol and recreational drug use. She has an appt on June 10 (in 3 days) to follow up with Dr. Brooke here in [place]. She states she is unable to continue to travel to [place] for follow ups. - History of Current Complaint Chief Complaint: EDExtremityUpper Time Seen by Provider: 06/07/17 15:44 Stated Complaint: PAIN/COLOR CHANGE LT HAND PINKY Hx Obtained From: Patient Hx Last Menstrual Period: 1 WEEK AGO Onset/Duration: Started Weeks Ago Skin Exposure Onset/Duration: Weeks Ago Timing: Constant Onset Severity: Worse Since: - last week Current Severity: Severe Pain Intensity: 8 Pain Scale Used: 0-10 Numeric Skin Location: Discrete - right fourth and fifth fingers Aggravating Symptom(s): Nothing Alleviating Symptom(s): Nothing Associated Signs & Symptoms: Negative Related History: PVD - Additional Pertinent History Primary Care Physician: [id number] Have you ever had this problem before: Yes - Allergy/Home Medications Allergies/Adverse Reactions: Allergies Allergy/AdvReac Type Severity Reaction Status Date / Time Pineapple Allergy Unknown Verified 05/31/17 15:07 Reaction Details PMH/Surg Hx/FS Hx/Imm Hx Previously Healthy: Yes Endocrine/Hematology History: Denies: Hx Diabetes Cardiovascular History: Denies: Hx Hypertension History: Denies: Hx Renal Disease Sensory History: Denies: Hx Contacts or Glasses, Hx Hearing Aid Opthamlomology History: Denies: Hx Contacts or Glasses - Surgical History Surgery Procedure, Year, and Place: appy as a child - Immunization History Date of Tetanus Vaccine: unk Date of Influenza Vaccine: unk Hx Pertussis Vaccination: No Immunizations Up to Date: Unable to Obtain/Confirm Infectious Disease History: No Infectious Disease History: Denies: Traveled Outside the [place] in Last 30 Days - Family History Known Family History: Positive: Other - positive for FMH for URI - Social History Occupation: Employed Full-time Lives: With Family Alcohol Use: None Hx Substance Use: No Substance Use Type: Reports: None Hx Tobacco Use: Yes Smoking Status (MU): Light Every Day Tobacco Smoker Type: Cigarettes Amount Used/How Often: 1/2 PPD Review of Systems Constitutional: Negative Eyes: Negative Cardiovascular: Negative Positive: no symptoms reported, see HPI Positive: Other - dusky red, john and white areas to the distal tip of the fourth and fifth fingers Neurological: Negative Psychological: Normal All Other Systems Reviewed And Are Negative: Yes Physical Exam Triage Information Reviewed: Yes Vital Signs On Initial Exam: Initial Vitals Temp Pulse Resp BP Pulse Ox 98.8 F 65 20 128/77 98 06/07/17 15:37 06/07/17 15:37 06/07/17 15:37 06/07/17 15:37 06/07/17 15:37 Vital Signs Reviewed: Yes Appearance: Positive: Well-Appearing, Well-Nourished Skin: Positive: Warm, Cold, Numb, Tender, Other - dusky red, john and white areas to the distal tip of the fourth and fifth fingers; skin does not appear to reflect adequate perfusion Eyes: Positive: EOMI, NICHOLAS, Conjunctiva Clear Respiratory/Lung Sounds: Positive: Clear to Auscultation, Breath Sounds Present Cardiovascular: Positive: Normal, RRR, Pulses are Symmetrical in both Upper and Lower Extremities Musculoskeletal: Positive: Normal, Strength/ROM Intact Neurological: Positive: Sensory/Motor Intact, Alert, Oriented to Person Place, Time, Speech Normal Psychiatric: Positive: Normal AVPU Assessment: Alert - Anna Coma Scale Coma Scale Total: 15 Diagnostics - Vital Signs Vital Signs Temp Pulse Resp BP Pulse Ox 06/07/17 15:51 99.6 F 71 22 112/67 98 06/07/17 15:37 98.8 F 65 20 128/77 98 - Laboratory Lab Statement: Any lab studies that have been ordered have been reviewed, and results considered in the medical decision making process. Course/Dx - Course Course Of Treatment: Duplex scan upper arterial doppler of the left upper extremity. BP equal in both arms.
--- NOTE | 2017-06-07 18:16 | RAD ---
Indication: Post proximal LEFT subclavian stent placement May 21, 2017. LEFT fifth digit pain and discoloration. Comparison: May 20, 2017 ultrasound. Technique: Bilateral upper extremity pulse volume recordings and wrist brachial indices. Arterial ultrasound of the bilateral subclavian arteries. Report: Mildly dampened triphasic waveforms at the bilateral subclavian arteries. This represents marked improvement on the LEFT compared with the May 20, 2017 exam. Triphasic waveforms at the bilateral axillary, brachial, radial, and ulnar arteries. Normal range bilateral wrist brachial indices. Grossly unremarkable upper arm and forearm pulse volume recordings bilaterally. Arterial flow documented at the RIGHT first through fifth fingers and the LEFT first through fourth fingers with diminished waveform at the LEFT fourth finger. No flow detected at the LEFT fifth finger. IMPRESSION: 1. Marked improvement in arterial waveform at the LEFT subclavian artery compared with the prestent exam of May 20, 2017. The current examination demonstrates the LEFT subclavian triphasic waveform to be symmetric with the RIGHT. 2. Grossly symmetric normal range bilateral wrist brachial indices. 3. Diminished arterial flow at the LEFT fourth finger and absent arterial flow at the LEFT fifth finger consistent with distal small vessel disease potentially embolic.
[2017-06-07] MEDS ORDERED: oxyCODONE/Acetamin 5/325 MG* TAB PO ONE ×2 (19:06→19:14)
[2017-06-07 19:41] VITALS: BP 90/66
--- NOTE | 2017-06-08 02:38 | ED ---
Progress - Progress Note Progress Note: Signed out from Qing Cunningham PA-C pending aterial doppler/PVR study. Patient is a 41 year old female presents to the ED with discolored left pinky and ring finger and severe pain s/p stent placement. 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 She was seen last week on 05/31/[address] Salazar who gave pain management after calling [facility] in [place] with the recommendation to send home and follow up as scheduled on 06/10/17. Patient reports that the pain had improved s/p stent placement, but now is becoming progressively worse (even since 05/31/2017 visit) and is preventing her from sleeping for the last 3 days. Touch and heat makes the pain worse. While last weeks visit she had dusky redness and purple tint, she now notes to new white area on the distal tip of the pinky finger. She is on Plavix 75mg once a day and ASA and has not missed a dose of either. PMHx is significant for chronic back pain and appendectomy - has been taking oxycodone 5/325mg for finger which she has for her chronic back pain - -no relief. Also takes nucynta for back pain. Dr. Brooke ([phone]) at [facility] placed stent placement on 05/20/2017 for her. SHx is significant for tobacco use (still smokes 1/2 PPD) but denies any alcohol and recreational drug use. Home is stressful - daughter lives w/ her and partner and she has "a lot of drama". She has an appt on June 10 (in 3 days) to follow up with Dr. Brooke here in [place]. Here today as pain is worse and concerned about color change in 5th finger. Arterial study reveals diminished flow to 4th finger and no flow to 5th finger, most likely from emboli. More proximal vessels are patent and improved from imaging on 05/20/2017 per radiologist's report. Discussed results w/ Dr. Brooke who advised pt f/u w/ him tomorrow at office. Also suggested avoiding smoking, stress and temperature changes which may be causing intermittent vasospasm. 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 Discussed options to improve pain until seen by Dr. Brooke tomorrow. Pt and partner agree w/ plan. See d/c for details. AMBAR LUZ 06/07/2017 Course/Dx - Course Course Of Treatment: Duplex scan upper arterial doppler of the left upper extremity. BP equal in both arms. - Diagnoses Provider Diagnoses: Arterial occlusive disease - Provider Notifications Discussed Care Of Patient With: Dr. Brooke
== END 2017-06-07 19:40 | disposition home or self-care (01) ==
LOC: ED 15:26
DX: I73.9 Peripheral vascular disease, unspecified (principal)
CPT/HCPCS: 93923; 99283; A9270-GY